=== PATIENT | male | born 1965 | race Caucasian/White ===

== ENCOUNTER 2018-12-23 09:26 | Day surgery (SDC) | payer OTHER ==
[2018-12-09 15:31] VITALS: BMI 27.8
[2018-12-23] MEDS ORDERED: LIDOCAINE HCL/PF 2% SDV 5ML VIAL ONE (09:47)
[2018-12-23] MEDS ORDERED: PROPOFOL 20 ML ONE ×2 (09:47)
[2018-12-23 09:51] VITALS: TEMP 98.4
[2018-12-23 11:37] VITALS: BP 111/67; PULSE 52
--- NOTE | 2018-12-25 10:55 | PATH ---
Surgical Pathology Report Patient Name: LAUREN JOHNSON [facility]. Rec. #: [id number] /Age/Gender: 1965 (Age: 53) / M Account: [id number] Location: [facility] Taken: 12/23/2018 Received: 12/23/2018 Reported: 12/25/2018 Physicians: Parul Corona M.D. Specimen(s) Received A: CECUM POLYP B: RECTUM POLYP Clinical History Positive cologuard, GI bleeding Postoperative diagnosis: Polyps, hemorrhoids Final Diagnosis A. CECUM, POLYP, BIOPSY: TUBULAR ADENOMA. B. RECTUM, BIOPSY: HYPERPLASTIC POLYP. Electronically Signed Parul Gómez M.D. Gross Description A. Received in formalin, labeled "cecum polyp" is a waller, irregular portion of soft tissue measuring 0.4 cm. in greatest dimension. The specimen is submitted in toto in one cassette. B. Received in formalin, labeled "rectum biopsy" is a waller, irregular portion of soft tissue measuring 0.4 cm. in greatest dimension. The specimen is submitted in toto in one cassette. 12/24/2018 [facility]12/24/2018
== END 2018-12-23 11:40 | disposition home or self-care (01) ==
LOC: FASU-ENDO 09:26
PROVIDERS: ATTEND Internal Medicine Gastroenterology
PROC: 0DBP8ZX Excision of Rectum, Via Natural or Artificial Opening Endoscopic, Diagnostic (ICD-10-PCS; 2018-12-23)
PROC: 0DBH8ZX Excision of Cecum, Via Natural or Artificial Opening Endoscopic, Diagnostic (ICD-10-PCS; principal; 2018-12-23 10:43)
DX: D12.0 Benign neoplasm of cecum (principal); K63.5 Polyp of colon; K62.1 Rectal polyp; K64.1 Second degree hemorrhoids; K92.1 Melena
CPT/HCPCS: 88305-TC